=== PATIENT | female | born 1990 | race Caucasian/White ===

== ENCOUNTER 2017-10-11 20:35 | Emergency (ER) | payer MEDICAID ==
[2015-10-27 07:30] VITALS: BMI 40.3
[~2017-10-11 20:35] MED LIST: MICROGESTIN FE1 EACH PO; NORCO 5/325 TAB1 TA1 PO; VALIUM 2 MG TAB2 MG PO
== END 2017-10-11 21:12 | disposition home or self-care (01) ==
LOC: D.ER 20:35
DX: H66.91 Otitis media, unspecified, right ear (principal); H92.01 Otalgia, right ear; F17.200 Nicotine dependence, unspecified, uncomplicated

== ENCOUNTER 2020-02-19 08:16 | Emergency (ER) | payer MEDICAID ==
[~2020-02-19] VITALS: Ht 157.5 cm; Wt 88.6 kg
[2020-02-19 08:25] VITALS: BP 121/75; Ht 157.5 cm; Wt 88.6 kg
[2020-02-19] MEDS ORDERED: KEFLEX500 MG PO (08:36)
== END 2020-02-19 08:43 | disposition home or self-care (01) ==
LOC: D.ER 08:16
DX: K05.10 Chronic gingivitis, plaque induced (principal); K06.8 Other specified disorders of gingiva and edentulous alveolar ridge